=== PATIENT | male | born 1935 | race Caucasian/White ===

== ENCOUNTER → 2017-08-18 | Day surgery (SDC) | payer MEDICARE ==
[~2017-08-18] MED LIST: DEXAMETHASONE SOD PHOS 20 MG/5 ML VIAL.; GLYCOPYRROLATE 1 MG/5 ML VIAL.; HYDROcodone/APAP 5/325MG 1 TAB TABLET PO; HYDROmorphone 2 MG/ML VIAL IV; LIDOCAINE 1% PF 2 ML VIAL. ID; MORPHINE SULFATE 2 MG/ML DISP.SYRIN. IV; NEOSTIGMINE METHYLSULFATE 5 MG/5 ML SYRINGE.; ONDANSETRON PF 4 MG/2 ML VIAL.; ONDANSETRON PF 4 MG/2 ML VIAL. IV; PROCHLORPERAZINE 10 MG/2 ML VIAL. IV; PROPOFOL 20 ML IV; ROCURONIUM 50 MG/5 ML VIAL.; SEVOFLURANE 61 TO 120 MINUTES. IH; ceFAZolin 2GM PREMIX 2 GM/50 ML BAG IV; ePHEDrine PF IN SALINE 50 MG/5 ML DISP.SYRIN IV; fentaNYL PF VIAL 100 MCG/2 ML VIAL; fentaNYL PF VIAL 100 MCG/2 ML VIAL IV
[2017-08-18] MEDS: IV RINGERS,LACTATED 1000ML 1,000 ML IV (07:00)
[2017-08-18] MEDS: BUPIVACAINE-EPI 0.25%-1:200000 50 ML VIAL. (10:05)
[2017-08-18] MEDS: HYDROcodone/APAP 5/325MG 1 TAB TABLET PO (11:30)
== END | disposition home or self-care (01) ==
LOC: SURG 08:09
DX: K42.9 Umbilical hernia without obstruction or gangrene (principal); I25.10 Atherosclerotic heart disease of native coronary artery without angina pectoris; E78.00 Pure hypercholesterolemia, unspecified; I10 Essential (primary) hypertension; Z98.890 Other specified postprocedural states; Z85.46 Personal history of malignant neoplasm of prostate
CPT/HCPCS: 49585; J0690; J1100; J2405; J2704; J2710; J3010; J3490; J7120